=== PATIENT | male | born 1960 | race Caucasian/White ===

== ENCOUNTER 2016-09-09 00:23 | Emergency (ER) | payer MEDICAID ==
[2016-09-09] MEDS ORDERED: Sodium Chloride 0.9% 10 ML Syringe FLUSH PRN (01:07)
[2016-09-09] MEDS ORDERED: Ondansetron 4 MG/2 ML SDV IVPUSH ONE (01:08)
[2016-09-09] MEDS ORDERED: Ketorolac 30 MG/ML SDV IVPUSH ONE (01:08)
--- NOTE | 2016-09-09 01:11 | EDM.PDOC ---
ED HPI GENERAL MEDICAL PROBLEM - General Chief Complaint: Exposure to Heat or Cold Time Seen by Provider: 09/09/16 01:01 Source of Information: Reports: Patient, RN Notes Reviewed History Limitations: Reports: No Limitations - History of Present Illness INITIAL COMMENTS - FREE TEXT/NARRATIVE: 55-year-old gentleman presents emergency department day complaint of overexertion, he admits to mowing the grass today in the hot sun following that he did not feel well had some nausea and vomiting with headache no fever does have a coronary artery disease history headache Pain Score (Numeric/FACES): 10 - Related Data Allergies Allergy/AdvReac Type Severity Reaction Status Date / Time fentanyl Allergy Nausea Verified 09/09/16 00:45 morphine Allergy Rash Verified 09/09/16 00:45 Home Meds: Home Meds Aspirin [Ecotrin] 325 mg PO DAILY 08/26/14 [History] Lisinopril [Lisinopril] 10 mg PO DAILY 08/26/14 [History] Multivit-Min/FA/Lycopene/Lut [Centrum Silver Tablet] 1 tab PO DAILY 08/26/14 [ History] Tamsulosin [Flomax] 0.4 mg PO DAILY 08/26/14 [History] Past Medical History HEENT History: Reports: Impaired Vision Cardiovascular History: Reports: CAD, [place], Stents Respiratory History: Reports: Asthma Genitourinary History: Reports: BPH Musculoskeletal History: Reports: Other (See Below) Other Musculoskeletal History: bilateral knee paimn amputation r little toe crush injury. Neurological History: Reports: Concussion Psychiatric History: Reports: Anxiety, Bipolar, Depression Immunologic History: Reports: Other (See Below) Other Immunologic History: Hep c - Past Surgical History Cardiovascular Surgical History: Reports: Coronary Artery Bypass GI Surgical History: Reports: Hernia Repair/Other Social & Family History - Tobacco Use Smoking Status *Q: Former Smoker Used Tobacco, but Quit: Yes Month Tobacco Last Used: november 2006 Second Hand Smoke Exposure: No - Caffeine Use Caffeine Use: Reports: Coffee - Alcohol Use Days Per Week of Alcohol Use: 0 - Recreational Drug Use Recreational Drug Use: No ED ROS GENERAL - Review of Systems Review Of Systems: See Below Constitutional: Reports: Weakness. Denies: Fever HEENT: Reports: No Symptoms Respiratory: Reports: No Symptoms Cardiovascular: Reports: No Symptoms GI/Abdominal: Reports: Nausea, Vomiting Musculoskeletal: Reports: No Symptoms Skin: Reports: No Symptoms Neurological: Reports: Headache ED EXAM, GENERAL - Physical Exam Exam: See Below Free Text/Narrative:: General: male, ill appearing, not in any distress, alert and oriented x3 HEENT: head is atraumatic normocephalic, eyes pupils equal round reactive to light, sclera clear no conjunctivitis appreciated. Ears tympanic membranes clear and duong landmarks and light reflex are present bilaterally canals are clear. Nose no septal deviation, nares are clear, no blood present. Mouth mucosa is dry and pink no erythema or exudate noted in soft palate, tongue is midline uvula is midline, dentures in place. Neck: Supple no thyromegaly no tracheal deviation. Nodes: Cervical nodes subclavicular nodes nontender no palpable lymphadenopathy noted. Lungs: clear to auscultation bilaterally with symmetrical respirations, no adventitious noise appreciated. CV: Regular rate and rhythm S1 and S2 appreciated no murmurs rubs or gallops noted. Abdomen: Soft, nontender, no palpable masses or organomegaly appreciated, no distention no guarding bowel sounds are present, Course - Vital Signs Last Recorded V/S: Last Vital Signs Temp 95.9 F 09/09/16 04:01 Pulse 69 09/09/16 04:01 Resp 20 09/09/16 04:01 BP 150/96 H 09/09/16 04:01 Pulse Ox 93 L 09/09/16 04:01 - Orders/Labs/Meds Orders: Active Orders 24 hr Category Date Time Status Cardiac Monitoring [RC] .As Directed Care 09/09/16 01:07 Active EKG Documentation Completion [RC] ASDIRECTED Care 09/09/16 01:08 Active Peripheral IV Care [RC] . DIRECTED Care 09/09/16 01:08 Active Lactated Ringers [Ringers, Lactated] 1,000 ml Med 09/09/16 01:15 Active IV ASDIRECTED Sodium Chloride 0.9% [Saline Flush] Med 09/09/16 01:07 Active 10 ml FLUSH ASDIRECTED PRN Peripheral IV Insertion Adult [OM.PC] Stat Oth 09/09/16 01:07 Ordered EKG 12 Lead [EK] Stat Ther 09/09/16 01:08 Ordered Medication Orders Lactated Ringer's (Ringers, Lactated) 1,000 mls @ 999 mls/hr IV ASDIRECTED NIKKI Last Admin: 09/09/16 01:38 Dose: 999 mls/hr Sodium Chloride (Saline Flush) 10 ml FLUSH ASDIRECTED PRN PRN Reason: Keep Vein Open Last Admin: 09/09/16 01:31 Dose: 10 ml Labs: Laboratory Tests 09/09/16 09/09/16 09/09/16 Range/Units 01:17 01:17 05:35 WBC 11.3 H (4.5-11.0) K/uL RBC 5.07 (4.30-5.90) M/uL Hgb 15.8 H (12.0-15.0) g/dL Hct 44.3 (40.0-54.0) % MCV 87 (80-98) fL MCH 31 (27-31) pg MCHC 36 (32-36) % Plt Count 657 H (150-400) K/uL Neut % (Auto) 75 H (36-66) % Lymph % (Auto) 16 L (24-44) % [place] % (Auto) 7 H (2-6) % Eos % (Auto) 1 L (2-4) % Baso % (Auto) 1 (0-1) % Sodium 134 L (140-148) mmol/L Potassium 4.2 (3.6-5.2) mmol/L Chloride 101 (100-108) mmol/L Carbon Dioxide 22 (21-32) mmol/L Anion Gap 15.2 H (5.0-14.0) mmol/L BUN 11 D (7-18) mg/dL Creatinine 1.0 (0.8-1.3) mg/dL Est Cr Clr Drug Dosing 77.84 mL/min Estimated GFR (MDRD) > 60 (>60) Glucose 103 (74-106) mg/dL Calcium 8.9 (8.5-10.1) mg/dL Total Bilirubin 0.5 (0.2-1.0) mg/dL AST 25 (15-37) U/L ALT 38 (12-78) U/L Alkaline Phosphatase 49 (46-116) U/L CK-MB (CK-2) 0.3 (0-3.6) mg/mL Troponin I < 0.017 (0.000-0.056) ng/mL Total Protein 8.4 H (6.4-8.2) g/dL Albumin 4.1 (3.4-5.0) g/dL Globulin 4.3 H (2.3-3.5) g/dL Albumin/Globulin Ratio 1.0 L (1.2-2.2) Urine Color Yellow Urine Appearance Clear Urine pH 6.0 (4.5-8.0) Ur Specific [place] 1.020 (1.008-1.030) Urine Protein Negative (NEGATIVE) mg/dL Urine Glucose (UA) Normal (NEGATIVE) mg/dL Urine Ketones 50 H (NEGATIVE) mg/dL Urine Occult Blood Negative (NEGATIVE) Urine Nitrite Negative (NEGAITVE) Urine Bilirubin Negative (NEGATIVE) Urine Urobilinogen Normal (NORMAL) mg/dL Ur Leukocyte Esterase Negative (NEGATIVE) Urine RBC Not seen (0-5) Urine WBC Not seen (0-5) Ur Epithelial Cells Not seen Amorphous Sediment Not seen Urine Bacteria Not seen Urine Mucus Moderate Meds: Medications Generic Name Dose Route Start Last Admin Trade Name Freq PRN Reason Stop Dose Admin Lactated Ringer's 1,000 mls @ 999 mls/hr 09/09/16 01:15 09/09/16 01:38 Ringers, Lactated IV 999 mls/hr ASDIRECTED NIKKI Administration Sodium Chloride 10 ml 09/09/16 01:07 09/09/16 01:31 Saline Flush FLUSH 10 ml ASDIRECTED PRN Administration Keep Vein Open Discontinued Medications Generic Name Dose Route Start Last Admin Trade Name Freq PRN Reason Stop Dose Admin Fentanyl 100 mcg 09/09/16 03:59 09/09/16 04:05 Sublimaze IVPUSH 09/09/16 04:00 100 mcg ONETIME ONE Administration Hydromorphone HCl 1 mg 09/09/16 02:26 09/09/16 02:32 Dilaudid IVPUSH 09/09/16 02:27 1 mg ONETIME ONE Administration Lactated Ringer's 1,000 mls @ 999 mls/hr 09/09/16 03:31 09/09/16 03:54 Ringers, Lactated IV 09/09/16 04:31 999 mls/hr BOLUS ONE Administration Ketorolac Tromethamine 30 mg 09/09/16 01:08 09/09/16 01:26 Toradol IVPUSH 09/09/16 01:09 30 mg ONETIME ONE Administration Ondansetron HCl 4 mg 09/09/16 01:08 09/09/16 01:26 Zofran IVPUSH 09/09/16 01:09 4 mg ONETIME ONE Administration Ondansetron HCl 4 mg 09/09/16 06:00 09/09/16 06:06 Zofran Odt PO 09/09/16 06:01 4 mg ONETIME ONE Administration Departure - Departure Time of Disposition: 06:12 Disposition: Eloped 07 Condition: good Clinical Impression: Heat exhaustion Qualifiers: Encounter type: initial encounter Qualified Code(s): T67.5XXA - Heat exhaustion , unspecified, initial encounter - Discharge Information Forms: ED Department Discharge Additional Instructions: Please followup with your primary care provider in 2-3 days if not better, please call return to the emergency department with worsening of symptoms. - My Orders Last 24 Hours: My Active Orders 09/09/16 01:07 Cardiac Monitoring [RC] .As Directed Sodium Chloride 0.9% [Saline Flush] 10 ml FLUSH ASDIRECTED PRN Peripheral IV Insertion Adult [OM.PC] Stat 09/09/16 01:08 EKG Documentation Completion [RC] ASDIRECTED Peripheral IV Care [RC] . DIRECTED EKG 12 Lead [EK] Stat 09/09/16 01:15 Lactated Ringers [Ringers, Lactated] 1,000 ml IV ASDIRECTED - Assessment/Plan Last 24 Hours: My Active Orders 09/09/16 01:07 Cardiac Monitoring [RC] .As Directed Sodium Chloride 0.9% [Saline Flush] 10 ml FLUSH ASDIRECTED PRN Peripheral IV Insertion Adult [OM.PC] Stat 09/09/16 01:08 EKG Documentation Completion [RC] ASDIRECTED Peripheral IV Care [RC] . DIRECTED EKG 12 Lead [EK] Stat 09/09/16 01:15 Lactated Ringers [Ringers, Lactated] 1,000 ml IV ASDIRECTED Plan: Assessment Acuity = acute Site and laterality = heat exhaustion Etiology = secondary to mowing grass Manifestations = none Location of injury = home Lab values = CBC within normal limits, sodium low at 134 consistent hyponatremia troponin is negative EKG is similar to past EKG specific gravity and urinalysis 1.02 Plan He felt significant improvement after 2 L of fluids and pain medication of Dilaudid and fentanyl as well as Toradol, plan is followup with primary care 2- 3 days if no improvement Patient was in agreement with the plan all questions were answered, they were instructed to return to the emergency department or call for worsening symptoms. This note was dictated using fromAtoB voice recognition software please call with any questions.
[2016-09-09] MEDS ORDERED: Lactated Ringers 1,000 ML IV SCH (01:15)
[2016-09-09] MEDS ORDERED: HYDROmorphone 1 MG/ML Syringe IVPUSH ONE (02:26)
[2016-09-09] MEDS ORDERED: Lactated Ringers 1,000 ML IV ONE (03:31)
[2016-09-09] MEDS ORDERED: fentaNYL 100 MCG/2 ML SDV IVPUSH ONE (03:59)
[2016-09-09 04:02] VITALS: BP 150/96
[2016-09-09] MEDS ORDERED: Ondansetron 4 MG Tab.DIS PO ONE (06:00)
== END 2016-09-09 06:31 | disposition home or self-care (01) ==
LOC: JP.ED 00:23
DX: T67.5XXA Heat exhaustion, unspecified, initial encounter (principal); I25.810 Atherosclerosis of coronary artery bypass graft(s) without angina pectoris; I25.2 Old myocardial infarction; Z95.4 Presence of other heart-valve replacement; Z95.5 Presence of coronary angioplasty implant and graft; J45.909 Unspecified asthma, uncomplicated; Z87.891 Personal history of nicotine dependence; Z79.82 Long term (current) use of aspirin; Z79.899 Other long term (current) drug therapy; Z88.5 Allergy status to narcotic agent; Z88.8 Allergy status to other drugs, medicaments and biological substances
CPT/HCPCS: 36415; 80053; 81001; 82553; 84484; 85025; 93005; 93010; 96361; 96374; 96375; 99284; A9270; J1170; J1885; J2405; J3010; J7050; J7120

== ENCOUNTER 2018-01-07 22:32 | Emergency (ER) | payer MEDICAID ==
[2018-01-07] MEDS ORDERED: Ketorolac 60 MG/2 ML SDV IM ONE (23:39)
[2018-01-07] MEDS ORDERED: Ondansetron 4 MG Tab.DIS PO ONE (23:47)
--- NOTE | 2018-01-07 23:47 | EDM.PDOC ---
ED HPI GENERAL MEDICAL PROBLEM - General Chief Complaint: Headache Stated Complaint: HEADACHE 2 DAYS Time Seen by Provider: 01/07/18 23:30 Source of Information: Reports: Patient, Old Records History Limitations: Reports: No Limitations - History of Present Illness INITIAL COMMENTS - FREE TEXT/NARRATIVE: 57 yo male here with a 2 d hx of SHEPARD associated with nausea, but no vomiting. He took 2 ASA earlier today without benefit. No fever or recent head trauma. No neck pain, but does have photophobia. He is concerned that the SHEPARD is caused by a newly prescribed cardiac med called Ranexa. He stopped the med yesterday, but the SHEPARD has not gone away. Drove himself to the ER, but states that he lives nearby. Has a functioning CO detector at home. Onset: Gradual Onset Date: 01/05/18 Duration: Day(s): (2), Constant Location: Reports: Head Quality: Reports: Ache Severity: Moderate Improves with: Reports: None Worsens with: Reports: Other (uncertain) Context: Reports: Other (new med with SHEPARD as side effect.) Associated Symptoms: Reports: Headaches, Nausea/Vomiting (no vomiting). Denies : Fever/Chills Treatments LEAVE SPECIALIST: Reports: Aspirin (2, over 8 hrs ago.) Headache Pain Score (Numeric/FACES): 10 - Related Data Allergies Allergy/AdvReac Type Severity Reaction Status Date / Time morphine Allergy Rash Verified 01/07/18 23:02 fentanyl AdvReac Nausea Verified 01/07/18 23:02 Home Meds: Home Meds Lisinopril 10 mg PO DAILY 08/26/14 [History] Multivit-Min/FA/Lycopene/Lut [Centrum Silver Tablet] 1 tab PO DAILY 08/26/14 [ History] Tamsulosin [Flomax] 0.8 mg PO DAILY 08/26/14 [History] Albuterol Sulfate [Proair Respiclick] 2 puff IH Q4H PRN 01/02/17 [History] Cetirizine [ZyrTEC] 10 mg PO DAILY 01/02/17 [History] Fluticasone Propionate [Flonase] 2 spray NS DAILY PRN 01/02/17 [History] Gabapentin [Neurontin] 100 mg PO BEDTIME 01/02/17 [History] Lurasidone [Latuda] 20 mg PO BEDTIME 01/02/17 [History] Metoprolol Succinate [Toprol XL] 25 mg PO DAILY 01/02/17 [History] Nitroglycerin [Nitrostat] 0.4 mg SL ASDIRECTED PRN 01/02/17 [History] OXcarbazepine [Oxcarbazepine] 150 mg PO BEDTIME PRN 01/02/17 [History] Zolpidem Tartrate [Ambien] 10 mg PO BEDTIME PRN 01/02/17 [History] amLODIPine Besylate [Norvasc] 2.5 mg PO DAILY 01/02/17 [History] atorvaSTATin [Lipitor] 40 mg PO BEDTIME 01/02/17 [History] lamoTRIgine [LaMICtal] 150 mg PO BEDTIME 01/02/17 [History] Aspirin [Halfprin] 81 mg PO DAILY 01/07/18 [History] Ranolazine [Ranexa] 500 mg PO BID 01/07/18 [History] Past Medical History HEENT History: Reports: Allergic Rhinitis, Impaired Vision Cardiovascular History: Reports: CAD, [place], Stents Respiratory History: Reports: Asthma, Sleep Apnea Other Respiratory History: c-pap Gastrointestinal History: Reports: GERD Genitourinary History: Reports: BPH Musculoskeletal History: Reports: Other (See Below) Other Musculoskeletal History: bilateral knee paimn amputation r little toe crush injury. Neurological History: Reports: Concussion Psychiatric History: Reports: Anxiety, Bipolar, Depression Immunologic History: Reports: Other (See Below) Other Immunologic History: Hep c gone now - Infectious Disease History Infectious Disease History: Reports: Hepatitis C - Past Surgical History Cardiovascular Surgical History: Reports: Coronary Artery Bypass, Coronary Artery Stent, Percutaneous Transluminal Angioplasty GI Surgical History: Reports: Hernia Repair/Other Social & Family History - Tobacco Use Smoking Status *Q: Former Smoker Used Tobacco, but Quit: Yes Month/Year Tobacco Last Used: 2006 - Caffeine Use Caffeine Use: Reports: Coffee, Tea - Recreational Drug Use Recreational Drug Use: No ED ROS GENERAL - Review of Systems Review Of Systems: See Below Constitutional: Reports: No Symptoms HEENT: Reports: Other (photophobia) Respiratory: Reports: No Symptoms Cardiovascular: Reports: No Symptoms GI/Abdominal: Reports: Nausea. Denies: Abdominal Pain, Black Stool, Bloody Stool, Constipation, Diarrhea, Hematemesis, Hematochezia, Vomiting : Reports: No Symptoms Musculoskeletal: Reports: No Symptoms Skin: Reports: No Symptoms Neurological: Reports: Headache Psychiatric: Reports: No Symptoms - Physical Exam Exam: See Below Exam Limited By: No Limitations General Appearance: Alert, WD/WN, No Apparent Distress Eye Exam: Bilateral Eye: Normal Inspection, Other (light sensitive) Ears: Normal External Exam, Normal Canal, Hearing Grossly Normal, Normal TMs Nose: Normal Inspection, Normal Mucosa, No Blood Throat/Mouth: Normal Inspection, Normal Lips, Normal Oropharynx, Normal Voice, No Airway Compromise Head Exam: Atraumatic, Normocephalic Neck: Normal Inspection, Supple, Non-Tender Respiratory/Chest: No Respiratory Distress, Lungs Clear, Normal Breath Sounds, No Accessory Muscle Use Cardiovascular: Regular Rate, Rhythm, No Edema GI/Abdominal: Normal Bowel Sounds, Soft, Non-Tender, No Distention Neuro Exam (Abbreviated): Alert, Oriented, CN II-XII Intact, Normal Cognition, No Motor/Sensory Deficits Back Exam: Normal Inspection. No: CVA Tenderness (R), CVA Tenderness (L) Extremities: Normal Inspection, Normal Range of Motion, Non-Tender, No Pedal Edema Psychiatric: Normal Affect, Normal Mood Skin Exam: Warm, Dry, Intact, Normal Color, No Rash Course - Vital Signs Text/Narrative:: Zofran resolved nausea, Toradol only slightly benefited the SHEPARD Dilaudid 1 mg IM given. Last Recorded V/S: Last Vital Signs Temp 35.2 C 01/07/18 22:59 Pulse 60 01/08/18 01:10 Resp 16 01/08/18 01:10 BP 130/74 01/08/18 01:10 Pulse Ox 96 01/08/18 01:10 - Orders/Labs/Meds Labs: Laboratory Tests 01/08/18 Range/Units 01:00 WBC 8.7 (4.5-11.0) K/uL RBC 5.03 (4.30-5.90) M/uL Hgb 15.3 H (12.0-15.0) g/dL Hct 44.6 (40.0-54.0) % MCV 89 (80-98) fL MCH 30 (27-31) pg MCHC 34 (32-36) % Plt Count 503 H (150-400) K/uL Meds: Medications Discontinued Medications Generic Name Dose Route Start Last Admin Trade Name Freq PRN Reason Stop Dose Admin Hydromorphone HCl 1 mg 01/08/18 00:51 01/08/18 01:01 Dilaudid IM 01/08/18 00:52 1 mg ONETIME ONE Administration Ketorolac Tromethamine 60 mg 01/07/18 23:39 01/07/18 23:58 Toradol IM 01/07/18 23:40 60 mg ONETIME ONE Administration Ondansetron HCl 4 mg 01/07/18 23:47 01/07/18 23:58 Zofran Odt PO 01/07/18 23:48 4 mg ONETIME ONE Administration Departure - Departure Time of Disposition: 01:36 Disposition: Home, Self-Care 01 Condition: Fair Clinical Impression: Medication side effect Head ache Qualifiers: Headache type: unspecified Headache chronicity pattern: acute headache Intractability: intractable Qualified Code(s): R51 - Headache - Discharge Information *PRESCRIPTION DRUG MONITORING PROGRAM REVIEWED*: Not Applicable *COPY OF PRESCRIPTION DRUG MONITORING REPORT IN PATIENT ADA: Not Applicable Referrals: Erick Alcazar MD [Primary Care Provider] - Forms: ED Department Discharge Additional Instructions: Hold your new heart med and let your heart doctor know about it in the morning. See your family doctor this week. Drink ample fluids. Take [place] as needed for SHEPARD.
[2018-01-08] MEDS ORDERED: HYDROmorphone 1 MG/ML Syringe IM ONE (00:51)
[2018-01-08 01:11] VITALS: BP 130/74
== END 2018-01-08 01:49 | disposition home or self-care (01) ==
LOC: JP.ED 22:32
DX: G44.40 Drug-induced headache, not elsewhere classified, not intractable (principal); T46.995A Adverse effect of other agents primarily affecting the cardiovascular system, initial encounter; I25.2 Old myocardial infarction; J45.909 Unspecified asthma, uncomplicated; F41.9 Anxiety disorder, unspecified; F31.9 Bipolar disorder, unspecified; I25.810 Atherosclerosis of coronary artery bypass graft(s) without angina pectoris; Z95.1 Presence of aortocoronary bypass graft; Z79.899 Other long term (current) drug therapy; Z87.891 Personal history of nicotine dependence; Z88.5 Allergy status to narcotic agent; Z88.8 Allergy status to other drugs, medicaments and biological substances
CPT/HCPCS: 36415; 85027; 96372; 99283; 99284; A9270; J1170; J1885

== ENCOUNTER 2020-01-16 05:59 | Day surgery (SDC) | payer MEDICAID ==
[2020-01-16] MEDS ORDERED: Sodium Chloride 0.9% 10 ML Syringe FLUSH PRN (06:30)
[2020-01-16 07:55] VITALS: BP 147/97; PULSE 56
--- NOTE | 2020-01-16 10:33 | OR ---
DATE OF PROCEDURE: 01/16/2020 SURGEON: Amy Reyes MD POSTOPERATIVE CARE: Postoperative care will be provided mainly at the [address] [place] [address] [facility] in conjunction with [facility]. PREOPERATIVE DIAGNOSIS: Cataract, left eye. POSTOPERATIVE DIAGNOSIS: Cataract, left eye. PROCEDURE: Phacoemulsification with intraocular lens placement, left eye. ANESTHESIA: Topical and intracameral. ESTIMATED BLOOD LOSS: Minimal. COMPLICATIONS: None. PATHOLOGY SPECIMENS: None. SURGICAL FINDINGS: None. INDICATION FOR PROCEDURE: The patient is a 59-year-old male with history of a visually significant cataract in the left eye, which interfered with activities of daily living. This consisted of a nuclear sclerosis cataract. Following careful discussion of the risks, benefits and alternatives to cataract extraction with intraocular lens placement including blindness and , the patient elected to proceed, and informed, written consent was obtained prior to the procedure. DESCRIPTION OF THE PROCEDURE: The patient was previously identified, and a kavya placed above the left eye. All sources, including the patient, indicated that the left eye was the correct eye. The patient was subsequently taken to the operating room where standard monitors were applied. The patient was then prepped and draped in the usual sterile fashion for ophthalmic surgery. Attention was first directed at the 12 o'clock position where a paracentesis port was fashioned. Shugar solution followed by Viscoat was instilled into the eye. Attention was then directed to the 8:30 position where a triplanar incision was made in a near-clear manner using a keratome. A continuous capsulorrhexis was then made using a combination of the cystotome and Utrata forceps. Hydrodissection was achieved using a balanced salt solution, and the lens rotated nicely. Phacoemulsification was then done using a modified [id number] technique without complication. Phaco time was 4.08 CDE. The remaining cortex was removed using the irrigation/aspiration handpiece. Provisc was then instilled into the eye. A Technis lens, model PCB00, at 19.5 diopters was then placed in the capsular bag using an [place] injector. The remaining viscoelastic was removed using the irrigation/aspiration forceps. All wounds were then checked and found to be watertight. The lid speculum and drapes were removed. Maxitrol ointment was placed in the patient's left eye, and the eye was shielded. The patient tolerated the procedure well. The patient was instructed to follow up tomorrow. All needle and sponge counts were correct at the end of the procedure. Amy Reyes MD /[id number]
== END 2020-01-16 07:58 | disposition home or self-care (01) ==
LOC: JP.SDS 05:59
PROVIDERS: ATTEND Ophthalmology
DX: H26.9 Unspecified cataract (principal)
CPT/HCPCS: V2632

== ENCOUNTER 2024-05-18 09:54 | Emergency (ER) | payer MEDICAID ==
[2024-05-18 10:16] LABS: BASOPHILS ABSOLUTE AUTO 0.08 K/uL (0.00-0.10); BASOPHILS PERCENT AUTO 1.3 % (0.1-1.3); EOSINOPHILS ABSOLUTE AUTO 0.33 K/uL (0.00-0.40); EOSINOPHILS PERCENT AUTO 5.3 % (0.0-5.4); HEMATOCRIT 40.7 % (38.4-49.7); HEMOGLOBIN 14.3 g/dL (12.9-16.9); IMMATURE GRAN ABSOLUTE AUTO 0.06 K/uL (0.00-0.23); LYMPHOCYTES ABSOLUTE AUTO 1.27 K/uL (0.8-3.3); LYMPHOCYTES PERCENT AUTO 20.5 % (11.4-47.7); MEAN CORPUSCULAR HEMOGLOBIN 32.1 pg (31.6-35.5); MEAN CORPUSCULAR HGB CONC 35.1 g/dL (31.6-35.5); MEAN CORPUSCULAR VOLUME 91.3 fL (81.4-99.0); MONOCYTES ABSOLUTE AUTO 0.54 K/uL (0.20-0.90); MONOCYTES PERCENT AUTO 8.7 % (3.3-12.6); NEUTROPHILS ABSOLUTE AUTO 3.91 K/uL (1.0-7.6); NEUTROPHILS PERCENT AUTO 63.2 % (40.0-78.1); PLATELET COUNT,PLT 511 K/uL (130-375); RED BLOOD CELL COUNT 4.46 M/uL (4.14-5.76); WHITE BLOOD CELL COUNT,WBC 6.2 K/uL (3.2-11.0)
[2024-05-18 10:32] LABS: A/G RATIO 0.8 (1.2-2.2); ALANINE AMINOTRANSFERASE,ALT 49 U/L (12-78); ALBUMIN 3.5 g/dL (3.4-5.0); ALKALINE PHOSPHATASE 45 U/L (46-116); ANION GAP 7.8 mmol/L (5.0-14.0); ASPARTATE AMNIOTRANSFERASE,AST 20 U/L (15-37); BILIRUBIN TOTAL 0.3 mg/dL (0.2-1.0); BLOOD UREA NITROGEN,BUN 16 mg/dL (7-18); CALCIUM 8.8 mg/dL (8.5-10.1); CARBON DIOXIDE,CO2 25 mmol/L (21-32); CHLORIDE,CL 107 mmol/L (100-108); CREATININE 1.4 mg/dL (0.8-1.3); EST CRCL DRUG DOSING (CG) 46.98 mL/min; ESTIMATED GFR 56 mL/min (>60); GLUCOSE RANDOM 86 mg/dL (74-106); POTASSIUM,K 4.3 mmol/L (3.6-5.2); PROTEIN TOTAL,TP 8.1 g/dL (6.4-8.2); SODIUM,NA 140 mmol/L (140-148); TROPONIN I HIGH SENSITIVITY 4.2 pg/mL (<=60.3)
[2024-05-18 10:33] LABS: C-REACTIVE PROTEIN < 0.50 mg/dL (<0.50)
[2024-05-18 10:38] LABS: SEDIMENTATION RATE MANUAL 8 mm/hr (0-20)
[2024-05-18 12:04] LABS: APPEARANCE,URINE CLEAR (CLEAR); BILIRUBIN,URINE NEGATIVE (NEGATIVE); COLOR,URINE YELLOW (YELLOW); GLUCOSE,URINE NEGATIVE (NEGATIVE); KETONES,URINE NEGATIVE (NEGATIVE); LEUKOCYTE ESTERASE,URINE NEGATIVE (NEGATIVE); NITRITE,URINE NEGATIVE (NEGATIVE); OCCULT BLOOD,URINE NEGATIVE (NEGATIVE); PROTEIN,URINE NEGATIVE (NEGATIVE); UROBILINOGEN,URINE 0.2 EU/dL (0.2-1.0)
[2024-05-18 12:06] VITALS: BP 127/74; PULSE 66
[2024-05-18 12:14] LABS: BACTERIA,URINE NOT SEEN; EPITHELIAL CELLS,URINE NOT SEEN; RBC,URINE NOT SEEN (0-5); WBC,URINE NOT SEEN (0-5)
[2024-05-18 12:15] LABS: AMPHETAMINES SCREEN, URINE NEGATIVE (NEGATIVE); BARBITURATE SCREEN,URINE NEGATIVE (NEGATIVE); BENZODIAZEPINES SCREEN,URINE NEGATIVE (NEGATIVE); METHADONE SCREEN, URINE NEGATIVE (NEGATIVE); METHAMPHETAMINES SCREEN, URINE NEGATIVE (NEGATIVE); OXYCODONE SCREEN,URINE NEGATIVE (NEGATIVE); PROPOXYPHENE SCREEN,URINE NEGATIVE (NEGATIVE); THC SCREEN,URINE 50 NG/ML POSITIVE (NEGATIVE)
== END 2024-05-18 14:35 | disposition home or self-care (01) ==
LOC: JP.ED 09:54
DX: R41.82 Altered mental status, unspecified (principal); T50.905A Adverse effect of unspecified drugs, medicaments and biological substances, initial encounter; I25.10 Atherosclerotic heart disease of native coronary artery without angina pectoris; I25.2 Old myocardial infarction; J45.909 Unspecified asthma, uncomplicated; M19.90 Unspecified osteoarthritis, unspecified site; E66.9 Obesity, unspecified; Z68.35 Body mass index [BMI] 35.0-35.9, adult; Z95.5 Presence of coronary angioplasty implant and graft; Z88.5 Allergy status to narcotic agent; Z79.51 Long term (current) use of inhaled steroids; Z79.82 Long term (current) use of aspirin; Z79.899 Other long term (current) drug therapy
CPT/HCPCS: 36415; 70450; 80053; 80305-QW; 80307; 81001; 83690; 84484; 85025; 85651; 86140; 99285